=== PATIENT | female | born 1960 | race Caucasian/White ===

== ENCOUNTER 2019-03-04 05:00 | Day surgery (SDC) | payer OTHER, BC ==
[2019-03-03 08:06] VITALS: BMI 33.2
--- NOTE | 2019-03-03 19:46 | HP ---
[facility] - Chief Complaint Chief Complaint: This patient is admitted to evaluate abnormal uterine bleeding with a history of endometrial hyperplasia with possible endometrial polyps. History of Present Illness: This patient has been treated for endomertial hyperplasia with hormonal treatment. The patient was offered definitive surgery (hysterectomy) but preferred trying non surgical treatment. 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 Zhang but did not care to be be treated by him.The patient recently had another bout of abnormal uterine bleeding and was found to have a thickened endometrium by sonography and is here to have this finding evaluated by hysteroscopy with D/C. History Source: Patient Limitations to Obtaining History: No Limitations - Past Medical History Allergies/Adverse Reactions: Allergies Allergy/AdvReac Type Severity Reaction Status Date / Time Penicillins Allergy "NAUSEA" Verified 08/11/16 06:34 NEW CLIENT BANKING SERVICES CLERK: No: Alzheimer's, CVA, Dementia, Migraine, Multiple Sclerosis, Peripheral Neuropathy, Parkinson's, Seizure, Syncope, TIA, Vertigo, Other Cardiovascular: No: AFIB, Aneurysm, Aortic Insufficiency, Aortic Stenosis, CAD, CHF, Deep Vein Thrombosis, HTN, Hyperlipdemia, VA, Mitral Insufficiency, Mitral Stenosis, Murmur, Pulmonary Hypertension, Other Pulmonary: No: Asthma, Bronchitis, Cancer, COPD, O2 Dependent, Pneumonia, Previously Intubated, Pulmonary Embolus, Pulmonary Fibrosis, Sleep Apnea, Other Gastrointestinal: No: Ascites, Cancer, Constipation, Crohn's Disease, Diverticulitis, Diverticulosis, Esophageal Varices, Gastritis, GERD, GI Bleed, Hemorrhoids, Hiatal Hernia, Inflamatory Bowel Disease, Irritable Bowel Disease, Pancreatitis, Peptic Ulcer Disease, Ulcerative Colitis, Other Hepatobiliary: No: Cirrhosis, Cholelithiasis, Cholecystitis, Choledocholithiasis , Hepatitis A, Hepatitis B, Hepatitis C, Other Renal/: No: Renal Failure, Renal Inusuff, BPH, Cancer, Hematuria, Hemodialysis , Neurogenic Bladder, Renal Calculi, UTI, Other Reproductive: No: Ectopic , Endometriosis, Fibroids, PID, Polycystic Ovary Syndrome, Postmenopausal, Other ...LMP: 02/20/19 ...: No ...: 3 ...Para: 3 Heme/Onc: No: Anemia, B12 Deficiency, Bleeding Disorder, Cancer, Current Chemotherapy, Current Radiation Therapy, Hemochromatosis, Hypercoaguable State, Myeloproliferative Synd, Sickle Cell Disease, Sickle Cell Trait, Thrombocytopenia, Other Infectious Disease: No: AIDS, C-Diff, Herpes Zoster, HIV, MRSA, STD's, Tuberculosis, VREF, Other Musculoskeletal: No: Bursitis, Chronic low back pain, Hemiparesis, Hemiplegia, Osteoarthritis, Paraplegia, Other Rheumatology: No: Fibromyalgia, Gout, Lupus, Rheumatoid Arthritis, Sarcoidosis, Vasculitis, Other ENT: No: Allergic Rhinitis, Sinusitis, Other Endocrine: No: Cole's Disease, Fayette's Disease, Diabetes Insipidus, Diabetes Mellitus, Hyperparathyroidism, Hyperthyroidism, Hypothyroidism, Osteopenia, SIADH, Other Dermatology: No: Basal Cell, Cellulitis, Eczema, Melanoma, Psoriasis, Squamous Cell, Other - Current Medications Current Medications: Home Medications Medication Instructions Recorded NK [No Known Home Medication] 08/08/16 Satellite Physical Exam - Physical Examination General Appearance: Well Nourished, Well Developed, Alert & Oriented x3 ENT: Clear, No Discharge, No masses Lung: Clear to auscultation Heart: Regular rate & rhythm, Normal S1, Normal S2 Breasts: Soft, Non-Tender, No masses bilaterally Abdomen: Soft, No tenderness, No CVA Extremities: No edema, No tenderness/swelling Pelvic Exam: Within normal limits External Genitalia, Within normal limits Vagina, Within normal limits Cervix, Within normal limits Uterus, Within normal limits [facility]: Intact, Alert, Oriented Satellite Impression/Plan - Impression/Plan Impression: Abnormal uterine bleeding with a history of endometrial hyperplasia.Patient also has possible endometrial polyps. Operative Procedure: Hysteroscopy with D/C and poypectomy. Date to be Performed: 03/04/19
[2019-03-04] MEDS ORDERED: PROPOFOL 20 ML ONE ×4 (07:57)
[2019-03-04] MEDS ORDERED: MIDAZOLAM HCL 2 MG/2 ML SINGLE DOSE VIAL ONE (07:57)
[2019-03-04] MEDS ORDERED: DEXAMETHASONE SOD PHOSPHATE 4 MG/1 ML VIAL ONE (08:14)
[2019-03-04] MEDS ORDERED: ONDANSETRON 4 MG/2 ML VIAL IVPUSH PRN (08:43)
[2019-03-04] MEDS ORDERED: ACETAMINOPHEN 1000 MG/100 ML VIAL (NON FORMULARY) IVPB ONE (08:43)
[2019-03-04] MEDS ORDERED: oxyCODONE HCL 5 MG TABLET PO PRN (08:43)
[2019-03-04] MEDS ORDERED: LACTATED RINGERS SOLUTION 1,000 ML IV SCH (08:45)
--- NOTE | 2019-03-04 09:02 | OP ---
DATE OF OPERATION: 03/04/2019 PREOPERATIVE DIAGNOSES: Abnormal uterine bleeding, endometrial hyperplasia, possible endometrial polyps or submucosal fibroids. POSTOPERATIVE DIAGNOSES: Irregular uterine bleeding, endometrial hyperplasia. The patient was brought to the operating room, placed in the supine position, given MAC anesthesia by the dry mill operator, placed in the lithotomy position, prepped and draped in the usual manner. The uterus was noted to be anteverted, normal sized. Adnexa negative. The anterior lip of the cervix was grasped with a tenaculum. The uterus was sounded to 8.5 cm. The cervix was dilated with Greene dilators. Hysteroscopy revealed blood clots that were adherent to the anterior surface of the endometrial lining. Besides that everything appeared normal. The endometrium appeared normal. No visual polyps or fibroids. A D & C was carried out with a medium-size curet. The patient tolerated the procedure well. The estimated blood loss was approximately 5 mL. The endocervical curettage was also carried out. Again the patient tolerated the procedures well. She was then transferred to the recovery room in good condition with good vital signs. YARA BEGUM M.D. [id number]
[2019-03-04 09:56] VITALS: TEMP 97.3
[2019-03-04] MEDS ORDERED: ONDANSETRON 4 MG/2 ML VIAL ONE (10:10)
[2019-03-04 12:02] VITALS: BP 144/70; PULSE 67
--- NOTE | 2019-03-09 14:25 | PATH ---
Surgical Pathology Report Patient Name: SARY RAHMAN [facility]. Rec. #: [id number] /Age/Gender: 1960 (Age: 58) / F Account: [id number] Location: [facility] Taken: 03/04/2019 Received: 03/04/2019 Reported: 03/09/2019 Physicians: Timothy Ramos M.D. Specimen(s) Received A: ENDOMETRIAL CURETTINGS B: ENDOCERVICAL CURETTINGS Clinical History Endometrial hyperplasia and endometrial polyps, irregular uterine bleeding Final Diagnosis A. ENDOMETRIAL CURETTINGS, DILATION AND CURETTAGE: POLYPOID WEAKLY PROLIFERATIVE ENDOMETRIUM SUGGESTIVE OF ENDOMETRIAL POLYP AND SUPERFICIAL MYOMETRIUM. B. ENDOCERVICAL CURETTINGS, DILATION AND CURETTAGE: POLYPOID WEAKLY PROLIFERATIVE ENDOMETRIUM AND SCANT BENIGN ENDOCERVICAL GLANDS. Comment: Immunohistochemical stains performed at [place], [place] ([id number]) and interpreted at [facility] for CD138 (parts A & B) utilized to evaluate this case. Findings discussed with Dr. Ramos. Electronically Signed Esperanza Calero M.D. Gross Description A. Received in formalin labeled "endometrial curettings" are multiple fragments of pink-berman hemorrhagic tissue measuring 1.5 x 1.5 x 0.5 cm in aggregate. Entire specimen submitted in one cassette. B. Received in formalin labeled "endocervical curettings" are multiple fragments of pink-breman hemorrhagic tissue measuring 0.7 x 0.5 x 0.2 cm in aggregate. Entire specimen submitted in one cassette. MLSZ/03/04/2019 sanml/03/04/2019
== END 2019-03-04 11:50 | disposition home or self-care (01) ==
LOC: JASU-SURG 05:00
PROVIDERS: ATTEND Obstetrics & Gynecology
PROC: 0UDB8ZX Extraction of Endometrium, Via Natural or Artificial Opening Endoscopic, Diagnostic (ICD-10-PCS; principal; 2019-03-04 08:00)
DX: N93.9 Abnormal uterine and vaginal bleeding, unspecified (principal); N85.00 Endometrial hyperplasia, unspecified
CPT/HCPCS: 84703; 88305-TC; 94760; J0131

== ENCOUNTER 2019-05-24 04:53 | Day surgery (SDC) | payer OTHER, BC ==
[2019-05-20 15:03] VITALS: BMI 32.5
[2019-05-24] MEDS ORDERED: MIDAZOLAM HCL 2 MG/2 ML SINGLE DOSE VIAL ONE (08:12)
[2019-05-24] MEDS ORDERED: PROPOFOL 20 ML ONE (08:12)
[2019-05-24] MEDS ORDERED: DEXAMETHASONE SOD PHOSPHATE 4 MG/1 ML VIAL ONE (08:14)
[2019-05-24] MEDS ORDERED: SCOPOLAMINE HYDROBROMIDE 1 PATCH PATCH.TD72 ONE (09:04)
--- NOTE | 2019-05-24 09:49 | HP ---
History & Physical Update - Physical Physical: No Change - Assessment Assessment: No Change - Plan Plan: No Change (H&P reviwed ,no changes. for hysteroscopy D&C , resection of myoma)
[2019-05-24] MEDS ORDERED: ONDANSETRON 4 MG/2 ML VIAL IVPUSH PRN ×2 (10:25→11:01)
[2019-05-24] MEDS ORDERED: oxyCODONE HCL 5 MG TABLET PO PRN ×3 (10:25→11:01)
[2019-05-24] MEDS ORDERED: LACTATED RINGERS SOLUTION 1,000 ML IV SCH (10:30)
[2019-05-24] MEDS ORDERED: IBUPROFEN 600 MG TABLET (FP) PO PRN (11:01)
[2019-05-24] MEDS ORDERED: IBUPROFEN 800 MG/8 ML IJ IVPB PRN (11:01)
--- NOTE | 2019-05-24 11:05 | OP ---
Operative Note - Note: Operative Date: 05/24/19 Pre-Operative Diagnosis: postmenopausal menorrhagia, submucos myoma Operation: hysteroscopy , D&C , resection of submucos myoma Findings: fundal submucos myoma , small EM polyp Surgeon: Linus Durán Anesthesia: General Specimens Removed: emc, submucos myoma , EM polyp Estimated Blood Loss (mls): 50 Drains & Tubes with Location: none Operative Report Dictated: Yes
[2019-05-24] MEDS ORDERED: ELECTROLYTE-148 SOLN 1,000 ML IV SCH (11:15)
[2019-05-24 12:52] VITALS: BP 116/61; PULSE 68; TEMP 97.8
--- NOTE | 2019-05-25 17:56 | PATH ---
Surgical Pathology Report Patient Name: SARY RAHMAN [facility]. Rec. #: [id number] /Age/Gender: 1960 (Age: 58) / F Account: [id number] Location: [facility] Taken: 05/24/2019 Received: 05/24/2019 Reported: 05/25/2019 Physicians: Linus Durán M.D. Specimen(s) Received ENDOMETRIAL CURETTINGS AND FIBROIDS Clinical History Endometrium thickened, submucosal leiomyoma of uterus Final Diagnosis ENDOMETRIAL CURETTINGS AND FIBROIDS, DILATION AND CURETTAGE, SUBMUCOSAL RESECTION: FIBROMUSCULAR TISSUE CONSISTENT WITH SUBMUCOSAL LEIOMYOMA. STRIPS OF ENDOMETRIAL GLANDS COMPATIBLE WITH ATROPHIC ENDOMETRIUM. SCANT BENIGN ENDOCERVICAL EPITHELIUM. Electronically Signed Esperanza Calero M.D. Gross Description Received in formalin labeled "endometrial curettings and fibroids," is a 3.5 x 2.5 x 0.3 cm aggregate of berman-red soft tissue fragments admixed with blood clot. The formalin is filtered and the specimen is entirely submitted in 2 cassettes. /05/24/2019 saudi05/24/2019
--- NOTE | 2019-05-26 08:28 | OP ---
DATE OF OPERATION: 05/24/2019 PREOPERATIVE DIAGNOSIS: Postmenopausal bleeding, menorrhagia, submucous fibroids. POSTOPERATIVE DIAGNOSIS: Postmenopausal bleeding, menorrhagia, submucous fibroids. PROCEDURE: Hysteroscopy, dilatation and curettage, and resection of submucous myoma. SURGEON: Linus Durán MD ANESTHESIA: General. ESTIMATED BLOOD LOSS: 50 mL. DESCRIPTION OF PROCEDURE: The patient was taken to the operating room, had adequate general anesthesia in dorsal lithotomy position. Examination under anesthesia revealed external genitalia to be normal. Vagina was normal, no lesions. Cervix was clean, no gross lesion. Uterus was prominent. Adnexa, no masses were palpable. Then, with a weighted speculum in the vagina, anterior lip of the cervix was grasped with a single-tooth tenaculum. Uterine cavity was sounded to 9 cm. Then, pelvis was slightly dilated with Hegar dilator, and then, Symphion resectoscope was introduced. Diagnostic hysteroscopy showed endometrium to be for the most part atrophic with several patches of endometrial thickening. There was also a small submucous myoma at the fundal area of the uterus. Both cornua regions were identified. No other abnormality was noted. Then, with the Symphion resectoscope, a submucous myoma was resected. There was also a small polyp at the opening of the ostium on the left side, which was resected. Then, hysteroscope was withdrawn, and the dilatation and curettage was done. Patient tolerated the procedure well, left the OR in good condition. Kym [id number]
== END 2019-05-24 12:45 | disposition home or self-care (01) ==
LOC: JASU-SURG 04:53
PROVIDERS: ATTEND Obstetrics & Gynecology
PROC: 0UJD8ZZ Inspection of Uterus and Cervix, Via Natural or Artificial Opening Endoscopic (ICD-10-PCS; 2019-05-24)
PROC: 0UB98ZZ Excision of Uterus, Via Natural or Artificial Opening Endoscopic (ICD-10-PCS; principal; 2019-05-24 09:30)
PROC: 0UDB7ZX Extraction of Endometrium, Via Natural or Artificial Opening, Diagnostic (ICD-10-PCS; 2019-05-24 09:30)
DX: N95.0 Postmenopausal bleeding (principal); D25.0 Submucous leiomyoma of uterus
CPT/HCPCS: 88305-TC; 94760

== ENCOUNTER 2021-06-07 05:09 | Day surgery (SDC) | payer OTHER, BC ==
[2021-06-05 11:56] VITALS: BMI 31.6
[2021-06-07 10:03] VITALS: TEMP 98.4
[2021-06-07 10:39] VITALS: BP 110/65; PULSE 61
== END 2021-06-07 10:53 | disposition home or self-care (01) ==
LOC: JASU-ENDO 05:09
PROVIDERS: ATTEND Internal Medicine Gastroenterology
PROC: 0DBP8ZX Excision of Rectum, Via Natural or Artificial Opening Endoscopic, Diagnostic (ICD-10-PCS; principal; 2021-06-07 09:32)
DX: Z12.11 Encounter for screening for malignant neoplasm of colon (principal); K62.1 Rectal polyp; K64.8 Other hemorrhoids; K57.30 Diverticulosis of large intestine without perforation or abscess without bleeding
CPT/HCPCS: 88305-TC